=== PATIENT | female | born 1990 | race Caucasian/White ===

== ENCOUNTER 2019-10-06 22:25 | Emergency (ER) | payer OTHER ==
[2019-10-06 22:35] VITALS: RESP 18; TEMP 98.7
--- NOTE | 2019-10-06 22:57 | ED ---
Abdominal Pain HPI - General Chief Complaint: Abdominal Pain Stated Complaint: Abdominal pain Time Seen by Provider: 10/06/19 22:42 Source: patient Mode of arrival: ambulatory Limitations: no limitations - History of Present Illness MD Complaint: abdominal pain Onset/Timin -: days(s) Location: RLQ Radiation: none Migration to: no migration Severity: moderate Quality: dull Consistency: intermittent Improves With: nothing Worsens With: movement Associated Symptoms: nausea - Related Data LMP (females 10-50): last week Previous Rx's Medication Instructions Recorded Naproxen 500 mg PO BID #14 tablet 10/07/19 Allergies Allergy/AdvReac Type Severity Reaction Status Date / Time codeine Allergy Unknown Verified 10/06/19 22:35 Penicillins Allergy Unknown Verified 10/06/19 22:35 Review of Systems ROS Statement: Those systems with pertinent positive or pertinent negative responses have been documented in the HPI. ROS Other: All systems not noted in ROS Statement are negative. Constitutional: Denies: fever, chills Respiratory: Denies: cough, dyspnea Cardiovascular: Denies: chest pain, palpitations, edema Gastrointestinal: Reports: as per HPI, abdominal pain, nausea. Denies: vomiting, diarrhea, constipation Genitourinary: Denies: dysuria, frequency, hematuria, discharge, abnormal menses Musculoskeletal: Denies: back pain Skin: Denies: rash Neurological: Denies: headache Past Medical History Past Medical History: Asthma History of Any Multi-Drug Resistant Organisms: None Reported Past Surgical History: Cholecystectomy, Orthopedic Surgery Past Psychological History: Anxiety Smoking Status: Never smoker Past Alcohol Use History: None Reported Past Drug Use History: None Reported General Exam Limitations: no limitations General appearance: alert, in no apparent distress Head exam: Present: atraumatic, normocephalic Eye exam: Present: normal appearance. Absent: scleral icterus, conjunctival injection ENT exam: Present: normal oropharynx Respiratory exam: Present: normal lung sounds bilaterally. Absent: respiratory distress, wheezes, rales, rhonchi, stridor Cardiovascular Exam: Present: regular rate, normal rhythm, normal heart sounds. Absent: systolic murmur, diastolic murmur, rubs, gallop GI/Abdominal exam: Present: soft, tenderness, normal bowel sounds. Absent: di stended, guarding, rebound, rigid, mass, pulsatile mass, hernia Extremities exam: Present: normal inspection, normal capillary refill. Absent: pedal edema, calf tenderness Back exam: Present: normal inspection. Absent: CVA tenderness (R), CVA tende rness (L) Neurological exam: Present: alert Skin exam: Present: warm, dry, intact, normal color. Absent: rash Course Vital Signs 10/06/19 22:32 Temperature 98.7 F Pulse Rate 106 H Respiratory 18 Rate Blood Pressure 149/85 O2 Sat by Pulse 100 Oximetry Medical Decision Making - Lab Data Result diagrams: 10/06/19 23:15 10/06/19 23:15 Lab Results 10/06/19 10/06/19 10/06/19 Range/Units 23:15 23:15 23:15 WBC 7.4 (3.8-10.6) k/uL RBC 4.65 (3.80-5.40) m/uL Hgb 13.4 (11.4-16.0) gm/dL Hct 40.2 (34.0-46.0) % MCV 86.5 (80.0-100.0) fL MCH 28.8 (25.0-35.0) pg MCHC 33.3 (31.0-37.0) g/dL RDW 12.7 (11.5-15.5) % Plt Count 211 (150-450) k/uL Neutrophils % 57 % Lymphocytes % 33 % Monocytes % 5 % Eosinophils % 2 % Basophils % 1 % Neutrophils # 4.2 (1.3-7.7) k/uL Lymphocytes # 2.5 (1.0-4.8) k/uL Monocytes # 0.4 (0-1.0) k/uL Eosinophils # 0.2 (0-0.7) k/uL Basophils # 0.1 (0-0.2) k/uL Sodium (137-145) mmol/L Potassium (3.5-5.1) mmol/L Chloride (98-107) mmol/L Carbon Dioxide (22-30) mmol/L Anion Gap mmol/L BUN (7-17) mg/dL Creatinine (0.52-1.04) mg/dL Est GFR (CKD-EPI)AfAm (>60 ml/min/1.73 sqM) Est GFR (CKD-EPI)NonAf (>60 ml/min/1.73 sqM) Glucose (74-99) mg/dL Calcium (8.4-10.2) mg/dL Total Bilirubin (0.2-1.3) mg/dL AST (14-36) U/L ALT (4-34) U/L Alkaline Phosphatase (38-126) U/L C-Reactive Protein (<10.0) mg/L Total Protein (6.3-8.2) g/dL Albumin (3.5-5.0) g/dL Amylase (30-110) U/L Lipase (23-300) U/L Urine Color Yellow Urine Appearance Cloudy H (Clear) Urine pH 7.0 (5.0-8.0) Ur Specific [place] 1.013 (1.001-1.035) Urine Protein Negative (Negative) Urine Glucose (UA) Negative (Negative) Urine Ketones Negative (Negative) Urine Blood Negative (Negative) Urine Nitrite Negative (Negative) Urine Bilirubin Negative (Negative) Urine Urobilinogen <2.0 (<2.0) mg/dL Ur Leukocyte Esterase Negative (Negative) Urine RBC 1 (0-5) /hpf Urine WBC 1 (0-5) /hpf Ur Squamous Epith Cells 3 (0-4) /hpf Urine Bacteria Occasional H (None) /hpf Urine Mucus Rare H (None) /hpf Urine HCG, Qual Not Detected (Not Detectd) 10/06/19 Range/Units 23:15 WBC (3.8-10.6) k/uL RBC (3.80-5.40) m/uL Hgb (11.4-16.0) gm/dL Hct (34.0-46.0) % MCV (80.0-100.0) fL MCH (25.0-35.0) pg MCHC (31.0-37.0) g/dL RDW (11.5-15.5) % Plt Count (150-450) k/uL Neutrophils % % Lymphocytes % % Monocytes % % Eosinophils % % Basophils % % Neutrophils # (1.3-7.7) k/uL Lymphocytes # (1.0-4.8) k/uL Monocytes # (0-1.0) k/uL Eosinophils # (0-0.7) k/uL Basophils # (0-0.2) k/uL Sodium 139 (137-145) mmol/L Potassium 4.1 (3.5-5.1) mmol/L Chloride 106 (98-107) mmol/L Carbon Dioxide 24 (22-30) mmol/L Anion Gap 9 mmol/L BUN 7 (7-17) mg/dL Creatinine 0.56 (0.52-1.04) mg/dL Est GFR (CKD-EPI)AfAm >90 (>60 ml/min/1.73 sqM) Est GFR (CKD-EPI)NonAf >90 (>60 ml/min/1.73 sqM) Glucose 100 H (74-99) mg/dL Calcium 9.2 (8.4-10.2) mg/dL Total Bilirubin 0.3 (0.2-1.3) mg/dL AST 29 (14-36) U/L ALT 20 (4-34) U/L Alkaline Phosphatase 53 (38-126) U/L C-Reactive Protein <5.0 (<10.0) mg/L Total Protein 7.0 (6.3-8.2) g/dL Albumin 4.4 (3.5-5.0) g/dL Amylase 50 (30-110) U/L Lipase 120 (23-300) U/L Urine Color Urine Appearance (Clear) Urine pH (5.0-8.0) Ur Specific [place] (1.001-1.035) Urine Protein (Negative) Urine Glucose (UA) (Negative) Urine Ketones (Negative) Urine Blood (Negative) Urine Nitrite (Negative) Urine Bilirubin (Negative) Urine Urobilinogen (<2.0) mg/dL Ur Leukocyte Esterase (Negative) Urine RBC (0-5) /hpf Urine WBC (0-5) /hpf Ur Squamous Epith Cells (0-4) /hpf Urine Bacteria (None) /hpf Urine Mucus (None) /hpf Urine HCG, Qual (Not Detectd) Disposition Clinical Impression: Abdominal pain, Ovarian cyst Disposition: HOME SELF-CARE Condition: Good Instructions (If sedation given, give patient instructions): Abdominal Pain (ED), Ovarian Cyst (ED) Prescriptions: Naproxen 500 mg PO BID #14 tablet Is patient prescribed a controlled substance at d/c from ED?: No Referrals: None,Stated [Primary Care Provider] - 1-2 days Lakesha Garza DO [Doctor of Osteopathic Medicine] - 1-2 days
[2019-10-06 23:44] LABS: Appearance,Urine Cloudy (Clear); Bacteria,Urine Occasional /hpf; Bilirubin,Urine Negative (Negative); Blood,Urine Negative (Negative); Color,Urine Yellow; Glucose,Urine (UA) Negative (Negative); Ketones,Urine Negative (Negative); Leukocyte Esterase,Urine Negative (Negative); Mucus,Urine Rare /hpf; Nitrite,Urine Negative (Negative); Protein,Urine Negative (Negative); RBC,Urine 1 /hpf (0-5); Specific Gravity,Urine 1.013 (1.001-1.035); Squamous Epithelial Cell,Urine 3 /hpf (0-4); Urobilinogen,Urine <2.0 mg/dL (<2.0); WBC,Urine 1 /hpf (0-5)
[2019-10-06 23:49] LABS: Basophils # (A) 0.1 k/uL (0-0.2); Basophils % (A) 1 %; Eosinophils # (A) 0.2 k/uL (0-0.7); Eosinophils % (A) 2 %; HCT 40.2 % (34.0-46.0); HGB 13.4 gm/dL (11.4-16.0); Lymphocytes # (A) 2.5 k/uL (1.0-4.8); Lymphocytes % (A) 33 %; MCH 28.8 pg (25.0-35.0); MCHC 33.3 g/dL (31.0-37.0); MCV 86.5 fL (80.0-100.0); Mean Platelet Volume 9.6; Monocytes # (A) 0.4 k/uL (0-1.0); Monocytes % (A) 5 %; Neutrophils # (A) 4.2 k/uL (1.3-7.7); Neutrophils % (A) 57 %; Platelet Count 211 k/uL (150-450); RBC 4.65 m/uL (3.80-5.40); RDW 12.7 % (11.5-15.5); WBC 7.4 k/uL (3.8-10.6)
[2019-10-07 00:11] LABS: ALT 20 U/L (4-34); AST 29 U/L (14-36); African American GFR (CKD) >90 (>60 ml/min/1.73 sqM); Albumin 4.4 g/dL (3.5-5.0); Alkaline Phosphatase 53 U/L (38-126); Amylase 50 U/L (30-110); Anion Gap 9 mmol/L; Blood Urea Nitrogen 7 mg/dL (7-17); Calcium 9.2 mg/dL (8.4-10.2); Carbon Dioxide 24 mmol/L (22-30); Chloride 106 mmol/L (98-107); Glucose 100 mg/dL (74-99); Non-African American GFR(CKD) >90 (>60 ml/min/1.73 sqM); Potassium 4.1 mmol/L (3.5-5.1); Sodium 139 mmol/L (137-145); Total Bilirubin 0.3 mg/dL (0.2-1.3)
[2019-10-07 00:39] LABS: C Reactive Protein <5.0 mg/L (<10.0)
--- NOTE | 2019-10-07 00:45 | US ---
EXAMINATION TYPE: US abdomen APPY DATE OF EXAM: 10/07/2019 COMPARISON: NONE CLINICAL HISTORY: RLQ pain. RLQ pain for 2 days, nausea, no fever APPENDIX Is the appendix seen in its entirety from the proximal cecum to distal end: no Appendix not seen with certainty Is there inflammatory changes or free fluid present: no IMPRESSION: Appendix not seen. No sign of appendicitis. No solid or cystic mass identified. No free fluid.
--- NOTE | 2019-10-07 00:48 | US ---
EXAMINATION TYPE: US transvaginal DATE OF EXAM: 10/07/2019 COMPARISON: NONE CLINICAL HISTORY: R/O torsion. RLQ pain TECHNIQUE: Transvaginal (TV). Date of LMP: september EXAM MEASUREMENTS: Uterus: 7.5 x 4.2 x 6.2 cm Endometrial Stripe: 0.7 cm Right Ovary: 4.3 x 3.0 x 3.2 cm Left Ovary: 3.7 x 2.0 x 1.9 cm 1. Uterus: Anteverted heterogeneous 2. Endometrium: appears wnl 3. Right Ovary: complex cystic area = 2.6 x 2.3 x 2.4cm 4. Left Ovary: follicles noted Spectral, color and waveform doppler imaging shows good arterial and venous flow within the ovaries ; there is no evidence for ovarian torsion. 5. Bilateral Adnexa: appears wnl 6. Posterior cul-de-sac: wnl IMPRESSION: There is a dominant simple cyst on the right ovary. No evidence of ovarian torsion. No solid adnexal mass or free fluid. Normal uterus.
[2019-10-07 01:15] VITALS: BP 103/63; PULSE 89
== END 2019-10-07 01:20 | disposition home or self-care (01) ==
LOC: EC 22:25
DX: N83.201 Unspecified ovarian cyst, right side (principal); Z88.0 Allergy status to penicillin; Z88.5 Allergy status to narcotic agent; Z90.49 Acquired absence of other specified parts of digestive tract
CPT/HCPCS: 36415; 76705; 76830; 80053; 81001; 81025; 82150; 83690; 85025; 86140; 93975; 99284